=== PATIENT | male | born 1955 | race Caucasian/White ===

== ENCOUNTER 2022-04-15 10:58 | Emergency (ER) | payer MEDICARE, OTHER, SELFPAY ==
[2022-04-15 11:30] VITALS: BP 148/83; PULSE 72; RESP 16; TEMP 36.8; O2SAT 96; BMI 36.9
--- NOTE | 2022-04-15 11:40 | XRR_ITS ---
PROCEDURE INFORMATION: Exam: XR Chest Exam date and time: 04/15/2022 12:20 PM Age: 66 years old Clinical indication: Fever TECHNIQUE: Imaging protocol: Radiologic exam of the chest. Views: 1 view. COMPARISON: No relevant prior studies available. FINDINGS: Tubes, catheters and devices: Electronic stimulator wire extends to the mid dorsal spine Lungs: Unremarkable. No consolidation. Pleural spaces: Unremarkable. No pleural effusion. No pneumothorax. Heart/Mediastinum: Unremarkable. No cardiomegaly. Bones/joints: Unremarkable. XR/XR chest 1V portable [id number] IMPRESSION: 1. No acute findings. 2. Electronic stimulator wire extends to the dorsal spine
[2022-04-15 12:28] LABS: Basophils # 0.1 10^3/uL (0.0-0.1); Basophils % 0.8 %; Eosinophils # 0.2 10^3/uL (0.0-0.8); Hematocrit 49.4 % (42.0-52.0); Hemoglobin 16.8 g/dL (11.7-16.6); Lymphocytes # 1.1 10^3/uL (0.8-4.8); Lymphocytes % 12.9 %; Mean Corpuscular Hemoglobin 30.5 pg (28.0-34.0); Mean Corpuscular Volume 89.7 fl (80-94); Mean Platelet Volume 10.1 fL (7.4-10.4); Monocytes # 0.9 10^3/uL (0.2-0.9); Monocytes % 10.8 %; Neutrophils # 6.26 10^3/uL (1.8-7.7); Neutrophils % 73.1 %; Nucleated Red Blood Cells % 0 %; Platelet Count 275 10^3/cmm (130-400); Red Blood Count 5.51 10^6/uL (4.1-5.3); Red Cell Distribution Width 12.9 % (12.1-15.1); White Blood Count 8.6 10^3/uL (4.0-10.0)
[2022-04-15 12:47] LABS: Erythrocyte Sedimentation Rate 16 mm/hr (0-10)
[2022-04-15 12:53] LABS: Alanine Aminotransferase 20 U/L (0-41); Albumin Level 4.6 g/dL (3.5-5.2); Alkaline Phosphatase 92 IU/L (40-130); Aspartate Amino Transferase 24 U/L (0-40); Blood Urea Nitrogen 19 mg/dL (8-23); C Reactive Protein 60.6 mg/L (0.0-4.9); Calcium 9.7 mg/dL (8.5-10.5); Carbon Dioxide 27 mmol/L (22-29); Chloride 96 mmol/L (98-107); Globulin 2.9 g/dL (1.3-4.6); Glomerular Filtration Rate 43.5 mL/min (90-130); Glucose 144 mg/dL (65-115); Osmolality Calculated 281 mOsm/kg (285-295); Sodium 133 mmol/L (136-145); Total Bilirubin 1.1 mg/dL (0.15-1.2); Total Protein 7.5 g/dL (6.6-8.7)
[2022-04-15] MEDS: sodium chloride 0.9% 1,000 ML 999 ML IV (13:52)
[2022-04-15 14:04] LABS: SARS Covid-2 Antigen Negative (Negative)
--- NOTE | 2022-04-15 14:22 | ED_ITS ---
HPI - Fever General: Chief Complaint: Fever Stated Complaint: body aches, sweating Time Seen by Provider: 04/15/22 11:28 History of Present Illness: 66 yo male patient presents to ER with low grade fever and body aches. Pt states he noticed a tick bite last week and is concerned his symptoms are from this. Pt denies any chest pain or SOB. Pt denies any cough or congestion. Pt denies any rashes. Pt with hx of HTN controlled with medication. Associated symptoms: Deny abdominal pain, flank pain, chills, chest pain, confusion, diarrhea, dysuria, extremity pain, headache(s), nasal congestion, nausea, sinus pain or vomiting Review of Systems Const: Denies: chills, body aches, change in appetite, change in weight, fatigue or diaphoresis Eyes: Denies: change in vision, blurry vision, blind spots, photophobia, eye discomfort, eye discharge, eye redness, floaters or seeing flashes ENMT: Denies: throat pain, uvular edema, enlarged tonsils, odynophagia, hoarseness, mouth pain, swelling of lips/tongue, oral sores, bleeding gums, dental pain, dry mouth, ear or mastoid pain, ear discharge, change in hearing, tinnitus, disequilibrium, nasal discharge, nasal congestion, post nasal drip or sinus pain Card: Denies: chest pain, palpitations, irregular heart rhythm, edema, swellin g of feet/ankles, lightheadedness, syncope, pre-syncope, dyspnea on exertion, orthopnea, leg pain with exertion or acrocyanosis Resp: Denies: dyspnea, productive cough, non-productive cough, wheezing, stridor, pain on inspiration, change in phlegm color, hemoptysis or chest congestion GI: Denies: abdominal pain, nausea, vomiting, hematemesis, dysphagia, diarrhea, constipation, GI cramping, change in bowel habits or rectal pain : Denies: flank pain, dysuria, urinary frequency, urinary urgency, urinary hesitancy or hematuria Musc: Denies: neck pain, back pain, extremity pain, extremity swelling, joint pain, joint swelling, joint redness, joint warmth or deformity Skin/Breast: Denies: rash, pruritus, erythema, sores, new lesions, changes in skin color or dry skin Neuro: Denies: headache(s), numbness in extremities, weakness in extremities, sensory changes, lack of coordination, difficulty walking, frequent falls, dizziness, vertigo, confusion, behavioral changes, Slurred speech present, difficulty communicating thoughts or seizure-like activity Psych: Denies: anxiety, depression, suicidal ideation or homicidal ideation Endo: Denies: polyuria, polydipsia, tired all the time, cold intolerance, excessive sweating, flushing, hot flashes or heat intolerance Polo/Lymph: Denies: easy bruising, easy bleeding, petechiae, purpura, enlarged lymph nodes or tender lymph nodes All/Imm: Denies: urticaria, throat swelling, tongue swelling, facial swelling, acute wheezing or itchy eyes Physical Exam Const: COMMON NORMALS: no acute distress, patient oriented x3, healthy appearing, alert and well nourished GENERAL APPEARANCE: cooperative, comfortable, well kempt and well developed; not ill appearing ORIENTATION/CONSCIOUSNESS: Yes awake, Yes oriented to person, Yes oriented to place and Yes oriented to time HENMT: COMMON NORMALS: normocephalic, atraumatic, hearing grossly normal b ilaterally, external ears normal, EAC's normal, TM's normal bilaterally, Normal external nose present, Normal nasal mucous membranes and turbinates present and moist oral mucous membranes HEAD & SCALP: normal to inspection, normocephalic and atraumatic FACE & SINUS: normal facial exam, sinuses nontender and face symmetric NOSE: Normal external nose present, Normal nares present, Normal nasal mucous membranes and turbinates present, No nasal discharge present and Abnormal external nose present EXTERNAL EAR: Yes external ears normal and Yes mastoids normal EXTERNAL AUDITORY CANAL: EAC's normal TYMPANIC MEMBRANE: TM's normal bilaterally MOUTH: Normal oral and palatal mucosa present, lip normal, tongue normal and Normal salivary glands and ducts present THROAT: no uvular edema Eye: COMMON NORMALS: Equal, round and reactive pupils present, EOMs intact bilaterally, conjunctivae normal and no scleral icterus GENERAL EYE: appearance normal, both eyes and all related structures EYELID: eyelids normal CONJUNCTIVA: Yes conjunctivae normal SCLERA: sclerae normal CORNEA: Yes corneas normal PUPIL: Yes Equal, round and reactive pupils present Neck/C-Spine: COMMON NORMALS: full ROM, no lymphadenopathy, supple, no meningeal signs, no JVD and Thyroid normal GENERAL: Yes normal visual inspection and Yes trachea midline THYROID: Thyroid normal CERVICAL SPINE: Yes cervical ROM normal Lymph: LYMPHATIC: no lymphadenopathy noted and no lymphedema noted Chest: COMMONS NORMALS: normal inspection of the chest and normal palpation of entire chest wall Resp: COMMON NORMALS: normal respiratory effort, No retractions, No use of accessory muscles and clear to auscultation bilaterally EFFORT & INSPECTION: Yes able to speak in complete sentences and Yes symmetric chest movement AUSCULTATION: clear to auscultation bilaterally Cardio: COMMON NORMALS: no JVD, regular rate and regular rhythm RATE: regular rate RHYTHM: regular rhythm GI: COMMON NORMALS: Normal to inspection, nondistended, normoactive bowel sounds present, Soft to palpation, non-tender, No hepatosplenomegaly present, no masses and no bruits INSPECTION: Yes normal to inspection AUSCULTATION: Yes normoactive bowel sounds PALPATION: Yes Soft to palpation and Yes No hepatosplenomegaly present PERCUSSION: normal to percussion RECTAL EXAM: Yes deferred : COMMON NORMALS: Yes no CVA tenderness BLADDER/KIDNEY EXAM: Yes no CVA tenderness Back/Pelvis: COMMON NORMALS: no CVA tenderness, thoracic and lumbar spine normal to inspection, no thoracic nor lumbar tenderness and thoraco-lumbar ROM normal THORACIC SPINE/UPPER BACK: Yes normal to inspection LUMBAR SPINE/LOWER BACK: Yes normal to inspection Extremity: COMMON NORMALS: normal to inspection, full ROM and capillary refill normal GENERAL: Yes normal exam except as noted Neuro: COMMON NORMALS: patient oriented x3, CN's II-XII intact bilaterally, moves all extremities, no focal motor deficits, no sensory deficits noted and gait normal SENSORIUM/ORIENTATION: Yes alert, Yes oriented to person, Yes oriented to place and Yes oriented to time MENINGEAL SIGNS: Yes no meningeal signs CRANIAL NERVES: Yes CN normal except as noted SPEECH: speech normal GAIT: Yes Normal gait present SENSORY EXAM: Yes extremities MOTOR EXAM: 5/5 motor strength present throughout Psych: COMMON NORMALS: mental status grossly normal, Normal thought process present, cooperative, normal affect, speech normal, activity/motor behavior normal, denies hallucinations, denies homicidal ideation and denies suicidal ideation APPEARANCE: Yes grossly normal and Yes well kempt ATTITUDE: Yes calm ACTIVITY/MOTOR BEHAVIOR: Yes appropriate eye contact SPEECH: Yes normal speech THOUGHT PROCESS: Normal thought process present THOUGHT CONTENT: Yes Normal thought content present ATTENTION/CONCENTRATION: Yes attention grossly intact MEMORY/COGNITION: Yes memory grossly intact INSIGHT: Good insight present (Psych) JUDGEMENT: Good judgement present (Psych) Skin: COMMON NORMALS: no rashes or lesions noted, no wounds, turgor normal, no jaundice, no petechiae and no mottling GENERAL SKIN EXAM: no rashes or lesions noted and turgor normal Course Vital Signs: Vital signs: Vital Signs Temperature 98.3 F 04/15/22 11:30 Pulse Rate 72 04/15/22 11:30 Respiratory Rate 16 04/15/22 11:30 Blood Pressure 148/83 04/15/22 11:30 Pulse Oximetry 96 04/15/22 11:30 MDM - Fever Medical Decision Making Patient is well appearing non toxic and in no acute distress. 66 yo male patient presents to ER with low grade fever and body aches. Pt states he noticed a tick bite last week and is concerned his symptoms are from this. Pt denies any chest pain or SOB. Pt denies any cough or congestion. Pt denies any rashes. Pt with hx of HTN controlled with medication. Pt is noted to have elevated inflammatory marker. I did order Tick panel but will not have results back today. Creatine was mildly elevated as well as sodium. Pt given 1 liter NS> Given patients symptoms in the presence of tick bite, I will go ahead and start on doxy at this time. Pt has no evidence of meningeal irritation. Covid is negative. Pt is stable for discharge. Case reviewed with Dr. Flores. Lab Data : 04/15/22 12:20 04/15/22 12:20 Radiology Impressions Chest X-Ray 04/15/22 11:40 IMPRESSION: 1. No acute findings. 2. Electronic stimulator wire extends to the dorsal spine Laboratory Results WBC 8.6 10^3/uL (4.0-10.0) 04/15/22 12:20 RBC 5.51 10^6/uL (4.1-5.3) H 04/15/22 12:20 Hgb 16.8 g/dL (11.7-16.6) H 04/15/22 12:20 Hct 49.4 % (42.0-52.0) 04/15/22 12:20 MCV 89.7 fl (80-94) 04/15/22 12:20 MCH 30.5 pg (28.0-34.0) 04/15/22 12:20 MCHC 34.0 g/dL (30.0-36.0) 04/15/22 12:20 RDW 12.9 % (12.1-15.1) 04/15/22 12:20 Plt Count 275 10^3/cmm (130-400) 04/15/22 12:20 MPV 10.1 fL (7.4-10.4) 04/15/22 12:20 Neut % (Auto) 73.1 % 04/15/22 12:20 Lymph % (Auto) 12.9 % 04/15/22 12:20 [place] % (Auto) 10.8 % 04/15/22 12:20 Eos % (Auto) 2.0 % 04/15/22 12:20 Baso % (Auto) 0.8 % 04/15/22 12:20 Neut # (Auto) 6.26 10^3/uL (1.8-7.7) 04/15/22 12:20 Lymph # (Auto) 1.1 10^3/uL (0.8-4.8) 04/15/22 12:20 [place] # (Auto) 0.9 10^3/uL (0.2-0.9) 04/15/22 12:20 Eos # (Auto) 0.2 10^3/uL (0.0-0.8) 04/15/22 12:20 Baso # (Auto) 0.1 10^3/uL (0.0-0.1) 04/15/22 12:20 Nucleated RBC % (auto) 0 % 04/15/22 12:20 Nucleated RBCs # 0.0 /100WBC 04/15/22 12:20 ESR 16 mm/hr (0-10) H 04/15/22 12:20 Sodium 133 mmol/L (136-145) L 04/15/22 12:20 Potassium 4.0 mmol/L (3.5-5.1) 04/15/22 12:20 Chloride 96 mmol/L (98-107) L 04/15/22 12:20 Carbon Dioxide 27 mmol/L (22-29) 04/15/22 12:20 Anion Gap 14.0 (5-19) 04/15/22 12:20 BUN 19 mg/dL (8-23) 04/15/22 12:20 Creatinine 1.6 mg/dL (0.7-1.2) H 04/15/22 12:20 GFR Calculation 43.5 mL/min (90-130) L 04/15/22 12:20 Glucose 144 mg/dL (65-115) H 04/15/22 12:20 Calculated Osmolality 281 mOsm/kg (285-295) L 04/15/22 12:20 Calcium 9.7 mg/dL (8.5-10.5) 04/15/22 12:20 Total Bilirubin 1.1 mg/dL (0.15-1.2) 04/15/22 12:20 AST 24 U/L (0-40) 04/15/22 12:20 ALT 20 U/L (0-41) 04/15/22 12:20 Alkaline Phosphatase 92 IU/L (40-130) 04/15/22 12:20 C-Reactive Protein 60.6 mg/L (0.0-4.9) H 04/15/22 12:20 Total Protein 7.5 g/dL (6.6-8.7) 04/15/22 12:20 Albumin 4.6 g/dL (3.5-5.2) 04/15/22 12:20 Globulin 2.9 g/dL (1.3-4.6) 04/15/22 12:20 SARS-CoV-2 Ag (Rapid) Negative (Negative) 04/15/22 12:20 Discharge Plan Discharge Patient Disposition: Home Clinical Impression: Tick bite Condition: Stable Prescriptions: New doxycycline hyclate 100 mg capsule 100 mg PO BID 10 Days Qty: 20 0RF Discharge Orders: Discharge ED (Routine); Ordered 04/15/22 Ordered By: Mitzi Robles Discharge Diet: Advance as tolerated Discharge Activity: Increase activity as tolerated Patient Instructions: Opioid Safety Activity Restrictions/Additional Instructions: please take medication as prescribed please follow up with PCP in 2-3 days Return to ER with any wosening of symptoms Coding Level of Care Code ED Senior Resident Care Director for Hector Sidhu
[2022-04-15 15:05] VITALS: BP 169/78; PULSE 56; RESP 15; TEMP 36.8; O2SAT 97
[2022-04-18 11:04] LABS: Lyme AB Screen <0.90 index
[2022-04-21 17:07] LABS: RMSF IGG DETECTED; RMSF IGM NOT DETECTED
[2022-04-21 21:53] LABS: E. Chaffeensis AB IGG <1:64; E. Chaffeensis AB IGM <1:20
== END 2022-04-15 15:10 | disposition home or self-care (01) ==
PROVIDERS: Emergency Provider Registered Nurse
DX: T14.8XXA Other injury of unspecified body region, initial encounter (principal); W57.XXXA Bitten or stung by nonvenomous insect and other nonvenomous arthropods, initial encounter; I10 Essential (primary) hypertension; Z20.822 Contact with and (suspected) exposure to COVID-19
CPT/HCPCS: 71045; 80053; 85025; 85651; 86140; 86618; 86666; 86757; 87426; 99284; J7030